=== PATIENT | female | born 1940 | race Caucasian/White ===

== ENCOUNTER 2020-01-07 09:44 | Inpatient (IN) | payer MEDICARE, OTHER ==
[~2020-01-07] VITALS: Ht 162.6 cm; Wt 72.1 kg
[~2020-01-07 09:44] MED LIST: CLARITIN D1 TAB.SR .; FLAX OIL PO; LYRICA 75MG75 MG; SUCRALFATE1 GM/10 ML PO; Z FISH OIL PO; Z MELATONIN PO; Z VITAMIN D PO; Z.0.BENICAR HCT 201 PO; Z.0.GLIMEPIRIDE2 MG PO; Z.0.GLUCOSAMINE1000; Z.0.MULTIVITAMINS1 E; Z.0.NAMENDA10 MG PO; Z.0.PRAVACHOL80 MG PO; Z.0.PREMARIN0.625 MG PO; Z.0.SUCRALFATE1 GM PO; Z.0.VICTOZA 2-0.6 MG SQ; Z.1.METFORMIN HCL100 PO
[2020-01-07] MEDS ORDERED: FENTANYL CITRATE/PF 100MCG/2 ML INJ IJ ONE (10:00)
--- NOTE | 2020-01-07 10:07 | Emergency Department Note ---
History of Present Illnes History of Present Illness Chief Complaint: Extremity Trauma/Pain History of Present Illness This is a 79 year old female Chief Complaint Comment PT CAME IN VIA [facility] FOR C/O LEFT KNEE/LEFT LEG PAIN, PT DENIES ANY TRAUMA, PT HAD AN MRI DONE AT HER PCP OFFICE AND STATES THAT NOTHING CONCLUSIVE WAS FOUND, NO DEFORMITY NOTED, NO SWELLING NOTED, PT WAS AMBULATORY ON SCENE. 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 Any updates have been documented here. Past Medical History Recent Fever: No Clinical Suspicion of Infectio: No New/Unexplained Change in Ment: No Past Medical History: Diabetes Other Medical History: NEUROPATHY, HIGH CHOLESTEROL, ACID REFLUX, ARTHRITIS Other Last Tetanus: UNKNOWBN Review of Systems Review of Systems Constitutional: Reports no symptoms EENTM: Reports no symptoms Cardiovascular: Reports no symptoms Respiratory: Reports no symptoms Gastrointestinal: Reports no symptoms Genitourinary: Reports no symptoms Musculoskeletal: Reports as per HPI, Reports joint pain (L hip) Integumentary: Reports no symptoms Neurological: Reports no symptoms Psychological: Reports no symptoms Endocrine: Reports no symptoms Hematological/Lymphatic: Reports no symptoms Physical Exam Related Data Allergies: Coded Allergies: Sulfa(Sulfonamide Antibiotics) (Verified Allergy, Mild, RASH, 04/21/09) Triage Vital Signs Vital Signs Date Time Temp Pulse Resp B/P (MAP) Pulse Ox O2 Delivery O2 Flow Rate FiO2 01/07/20 09:51 99.0 78 18 158/78 99 Room Air Vital signs reviewed: Yes Physical Exam CONSTITUTIONAL Constitutional: Present well-developed, Present well-nourished, Present distressed HENT HENT: Present normocephalic, Present atraumatic, Present oropharynx clear/moist, Present nose normal HENT L/R: Present left ext ear normal, Present right ext ear normal EYES Eyes: Reports PERRL, Reports conjunctivae normal NECK Neck: Present ROM normal PULMONARY Pulmonary: Present effort normal, Present breath sounds normal CARDIOVASCULAR Cardiovascular: Present regular rhythm, Present heart sounds normal, Present capillary refill normal, Present normal rate, Present strong pulses (BLE) GASTROINTESTINAL Abdominal: Present soft, Present nontender, Present bowel sounds normal GENITOURINARY Genitourinary: Present exam deferred SKIN Skin: Present warm, Present dry MUSCULOSKELETAL Musculoskeletal: Present ROM normal; Absent edema, Absent deformity, Absent tenderness NEUROLOGICAL Neurological: Present alert, Present oriented x 3, Present no gross motor or sensory deficits PSYCHOLOGICAL Psychological: Present mood/affect normal, Present judgement normal Results Laboratory Lab results reviewed: Yes Imaging Imaging results reviewed: Yes Assessment & Plan Medical Decision Making MDM 79 y.o F PMH D II presents for L leg pain x 1 week. Seen multiple times for this. Had neg MRI with Dr. Esparza. Exam benign. Pain appears to be out of proportion to exam. ROM full, able to ambulate. Will perform CT dissection. and admit to Dr. Esparza for pain control. CT dissection shows decreased flow at L popliteal artery but pulses 2+/equal. Unsure of significant. Doubt clinically significant arterial clot at this time. Reassessment Reassessment time: 10:07 Reassessment Pain improved after fentanyl Assessment & Plan Final Impression: (1) Intractable pain (2) Leg pain Depart Disposition: ADMITTED Last Vital Signs Date Time Temp Pulse Resp B/P (MAP) Pulse Ox O2 Delivery O2 Flow Rate FiO2 01/07/20 09:51 99.0 78 18 158/78 99 Room Air Home Meds Reported Medications Hydrocodone Bit/Acetaminophen (NORCO 5-325 TABLET) 1 Each Tablet, 1 TAB PO Q6H PRN for MODERATE PAIN (4-6), TAB 01/07/20 Oxybutynin Chloride (OXYBUTYNIN CHLORIDE ER) 5 Mg Tab.er.24, 5 MG PEG DAILY 01/07/20 Pioglitazone Hcl (PIOGLITAZONE HCL) 45 Mg Tablet, 30 MG PO DAILY, #30 TAB 01/07/20 Flaxseed Oil (Flax Oil) 1,000 Mg Capsule, 1000 MG PO DAILY 06/19/11 [place]-3/Dha/Epa/Fish Oil (Fish Oil 1,400 Mg Softgel) 1 Each Capsule.dr, 1 EACH PO QD 06/19/11 Multivitamin (MULTIVITAMINS) 1 Each Tab.chew, DAILY 06/19/11 Cholecalciferol (Vitamin D) 1,000 Unit Capsule, 1000 UNIT PO DAILY 06/19/11 Olmesartan/Hydrochlorothiazide (Benicar Hct 20-12.5 Mg Tablet) 1 Each Tablet, 1 EACH PO QD 06/19/11 Metformin Hcl (Metformin Hcl) 1,000 Mg Tablet, 500 MG PO DAILY 06/19/11 Discontinued Reported Medications Sucralfate (Sucralfate) 1 Gm Tablet, 1 GM PO QID 07/10/11 Loratadine/Pseudoephedrine (CLARITIN D 24 HR) 1 Tab.sr .24 H Tabsr, DAILY 06/19/11 Melatonin (Melatonin) 3 Mg Tablet, 3 MG PO HS 06/19/11 Glucosamine Sulfate 2KCL (GLUCOSAMINE) 1,000 Mg Tablet, BID 06/19/11 Liraglutide (Victoza 2-Daryn) 0.6 Mg/0.1 Ml Pen.injctr, 0.6 MG SQ DAILY 06/19/11 Estrogens,Conjugated (Premarin) 0.625 Mg Tablet, 0.625 MG PO QOD 06/19/11 Pravastatin Sodium (Pravachol) 80 Mg Tablet, 80 MG PO QD 06/19/11 Pregabalin (LYRICA 75MG) 75 Mg Cap, QD 06/19/11 Memantine Hcl (Namenda) 10 Mg Tablet, 10 MG PO BID 06/19/11 Glimepiride (Glimepiride) 2 Mg Tablet, 2 MG PO BID 06/19/11 Medications in the ED Fentanyl Citrate 50 mcg ONCE ONCE IJ ; Start 01/07/20 at 10:00; Stop 01/07/20 at 10:01; Status UNV LAURA POTTER MD Jan 07, 2020 10:07
[2020-01-07 10:26] LABS: BASOPHILS % 0.3 % (0.0-1.0); EOSINOPHILS # (AUTO) 0.1 (0.0-0.4); EOSINOPHILS % 1.5 % (0.0-6.0); HEMATOCRIT 40.2 % (34.2-44.1); HEMOGLOBIN 13.2 g/dL (12.0-16.0); LYMPHOCYTES # (AUTO) 1.3 (1.0-3.2); LYMPHOCYTES % 22.3 % (18.0-39.1); MEAN CORPUSCULAR HEMOGLOBIN 31.7 pg (28-32); MEAN CORPUSCULAR HGB CONC 32.8 g/dL (31-35); MEAN CORPUSCULAR VOLUME 96.6 fL (81-99); MONOCYTES # (AUTO) 0.7 (0.2-0.8); MONOCYTES % 11.5 % (4.4-11.3); NEUTROPHILS # (AUTO) 3.9 (2.1-6.9); NEUTROPHILS % 64.2 % (38.7-80.0); PLATELET COUNT 184 x10e3/uL (140-360); RED BLOOD COUNT 4.16 x10e6/uL (3.6-5.1); RED CELL DISTRIBUTION WIDTH 13.7 % (11.7-14.4)
[2020-01-07] MEDS ORDERED: SODIUM CHLORIDE 0.9% 1000ML 1,000 ML IV SCH (10:30)
[2020-01-07 10:47] LABS: ALBUMIN 4.4 g/dL (3.5-5.0); ALBUMIN/GLOBULIN RATIO 1.4 (0.8-2.0); ANION GAP 17.1 mmol/L (8-16); CREATININE, SERUM 1.17 mg/dL (0.57-1.11); POTASSIUM 4.1 mmol/L (3.5-5.1)
[2020-01-07] MEDS ORDERED: SODIUM CHLORIDE 0.9% 500ML 500 ML IV STA (10:59)
--- OUTSIDE RECORDS SUMMARY | 2020-01-07 11:04 | XMS REPORT | Continuity of Care Document ---
Author Author [facility] t Organization [facility] Address [address] [place] [address] Phone Unavailable Care Team Providers Care Piling Setter Name Role Phone Sharpless PCP SANFORD ARAIZA Attphyhieu Unavailable Problems This patient has no known problems. Allergies, Adverse Reactions, Alerts Allergy Name Allergy Type Status Severity Reaction(s) Onset Date Inacti ve Date Treating Clinician Comments Source Sulfa (Sulfonamide Antibiotics) Propensity to adverse reactions Activ e Rash 2016-01-06 00:00:00 [facility] Social History Social Habit Start Date Stop Date Quantity Comments Source Sex Assigned At [facility] Medications Ordered Medication Name Filled Medication Name Start Date Stop Da te Current Medication? Ordering Clinician Indication Dosage Frequency Signature (SIG) Comments Components Source glimepiride (AMARYL) 4 MG tablet 2016-01-06 18:12:17 Yes 4mg Take 4 mg by mouth every morning before breakfast. [facility] acetaminophen-codeine (TYLENOL #3) 300-30 mg per tablet 2016-01-02 00:00:00 Yes [facility] traZODone (DESYREL) 100 MG tablet 2015-12-30 00:00:00 Yes [facility] BENICAR HCT 20-12.5 mg per tablet 2015-12-24 00:00:00 Yes [facility] metFORMIN (GLUCOPHAGE) 500 MG tablet 2015-12-17 00:00:00 Yes [facility] VICTOZA 3-FCO 0.6 mg/0.1 mL (18 mg/3 mL) PnIj 2015-12-16 00:00:0 0 Yes [facility] fluticasone (FLONASE) 50 mcg/actuation nasal spray 2015-11 00:00:00 Yes [facility] LYRICA 75 mg capsule 2015-11-26 00:00:00 Yes [facility] Procedures This patient has no known procedures. Results Test Description Test Time Test Comments Results Result Comments Source MRI BRAIN WO [facility] [address] [address] Patient Name: YUKO GARCIA MR #: [id number] : 1940 Age/Sex: 76/F Req #: [id number] Adm Physician: Ordered by: SANFORD ARAIZA MD Report #: [id number] Location: MRI Room/Bed: Procedure: [id number] MRI/MRI BRAIN WO Exam Date: 01/22/17 Exam Time: 1400 REPORT STATUS: Signed EXAMINATION: MRI of the brain without contrast. HISTORY: Memory loss COMPARISON: None. TECHNIQUE: Sagittal T1 ultrathin slice with coronal and axial reformations; axial DWI, T2, FLAIR, T2 gradient echo. IMAGE QUALITY: Adequate. FINDINGS: DEMENTIA: Structural lesion: No intra- or extra-axial mass or hematoma. Ventricles: No hydrocephalus. Murphy matter signal intensity: Cortex: Unremarkable. Basal ganglia: Unremarkable. Thalami: Unremarkable. White matter signal intensity: Cerebral: Few scattered white matter T2 and FLAIR hyperintense foci, most likely nonspecific symmetric posterior ischemic changes. Brainstem: Unremarkable. Mamillary bodies/fornices and hippocampi: No atrophy or abnormal signal. Microhemorrhages: None. Atrophy: Global: Symmetric and age-appropriate. Focal: Slightly disproportionate bilateral parietal cortical and right medial temporal/hippocampal volume loss. Otherwise no disproportionate lobar, mesencephalic, pontine, or cerebellar atrophy. Vessels: Expected flow voids present in the major arteries and dural sinuses. Sella: Unremarkable. OTHER: Subarachnoid spaces: No abnormal signal intensity. Foramen magnum: Unremarkable. Skull: Unremarkable. Paranasal / mastoid sinuses: No significant inflammatory disease. IMPRESSION: 1. Minimal age-related chronic microvascular ischemic changes. 2. Mild bilateral parietal and right medial temporal/hippocampal volume loss. Signed by: Dr. Mayte De La Fuente M.D. on 01/23/2017 7:25 AM Dictated By: MAYTE DE LA FUENTE MD 4 Transcribed By: HYACINTH on 01/23/17724 COPY TO: SANFORD ARAIZA MD
--- OUTSIDE RECORDS SUMMARY | 2020-01-07 11:04 | XMS REPORT | Clinical Summary ---
Author Author JOSE MANUEL [facility] Address Unknown Phone Unavailable Care Team Providers Care Stone Lathe Operator Name Role Phone Sharpless PCP Allergies Comments Active Allergy Reactions Severity Noted Date Sulfa (Sulfonamide Rash Low 01/06/2016 Antibiotics) Medications End Date Status Medication Sig Dispensed Refills Start Date Active VICTOZA 3-FCO 0.6 mg/0.1 0 mL (18 mg/3 mL) PnIj 6 Active metFORMIN (GLUCOPHAGE) 0 500 MG tablet 6 Active BENICAR HCT 20-12.5 mg 0 per tablet 6 Active LYRICA 75 mg capsule 0 6 Active traZODone (DESYREL) 100 0 MG tablet 6 Active acetaminophen-codeine 0 (TYLENOL #3) 300-30 mg 6 per tablet Active fluticasone (FLONASE) 50 0 mcg/actuation nasal spray 6 Active glimepiride (AMARYL) 4 MG Take 4 mg by 0 tablet mouth every morning before breakfast. Active Problems Not on file Social History Date Tobacco Use Types Packs/Day Years Used Never Assessed Sex Assigned at Date Recorded Not on file Last Filed Vital Signs Not on file Plan of Treatment Not on file Results Not on fileafter 01/06/2019 Insurance Type Payer Benefit Subscriber ID Effective Phone Address Plan / Dates Group [facility] [id number] 2015-P MEDICARE resent ADV
[2020-01-07] MEDS ORDERED: PIOGLITAZONE HC45 MG PO (11:41)
[2020-01-07] MEDS ORDERED: OXYBUTYNIN CHLOR5 M1 PEG (11:41)
[2020-01-07] MEDS ORDERED: NORCO 5-325 TA1 EACH PO (11:41)
--- NOTE | 2020-01-07 12:01 | Diagnostic Imaging Report ---
EXAM: FEMUR 2 VIEWS MINIMUM LEFT, KNEE LEFT THREE VIEWS, HIP LEFT 2-3 VW (+/- PELVIS) DATE: 01/07/2020 11:20 AM INDICATION: Left lower extremity pain COMPARISON: None FINDINGS: Pelvis and left hip: There is no evidence for acute fracture or dislocation. No focal lytic or blastic abnormality is identified. There are advanced degenerative changes of the left hip with severe joint space narrowing, subchondral sclerosis, and osteophyte production. The surrounding soft tissues are unremarkable without evidence for radiopaque foreign body. Left femur: There is no evidence for acute fracture or dislocation. No focal lytic or blastic abnormality is identified. The surrounding soft tissues are unremarkable without evidence for radiopaque foreign body. Left knee: There is no evidence for acute fracture or dislocation. No focal lytic or blastic abnormality is identified. There is mild to moderate femorotibial joint space narrowing, more prominent within the medial compartment. Mild spurring noted of the tibial spine. The surrounding soft tissues are unremarkable without evidence for radiopaque foreign body or significant joint effusion. IMPRESSION: No acute radiographic abnormality identified within the left hip, femur, or knee. Advanced degenerative changes of the left hip as detailed above. Signed by: Dr. Gómez Sims MD on 01/07/2020 11:58 AM
[2020-01-07] MEDS ORDERED: IOPAMIDOL 370 MG/ML 200 ML INFUS..BTL INJ ONE (12:40)
[2020-01-07] MEDS ORDERED: SODIUM CHLORIDE 0.9% 100 ML ONE (12:40)
[2020-01-07] MEDS: FENTANYL CITRATE/PF 100MCG/2 ML INJ IV PRN ×2 (13:08→17:15)
[2020-01-07] MEDS ORDERED: MORPHINE SULFATE 2 MG/ML SYR 1ML IV PRN (14:45)
--- OUTSIDE RECORDS SUMMARY | 2020-01-07 14:50 | XMS REPORT | Continuity of Care Document ---
Author Author [facility] t Organization [facility] Address [address] [place] [address] Phone Unavailable Care Team Providers Care Gas Examiner Name Role Phone Sharpliliana PCP Angela Jane Attphys Unavailable SANFORD ARAIZA Attphyhieu Unavailable Problems This patient has no known problems. Allergies, Adverse Reactions, Alerts Allergy Name Allergy Type Status Severity Reaction(s) Onset Date Inacti ve Date Treating Clinician Comments Source Sulfa (Sulfonamide Antibiotics) Propensity to adverse reactions Activ e Rash 2016-01-06 00:00:00 [facility] Social History Social Habit Start Date Stop Date Quantity Comments Source Sex Assigned At [facility] Medications Ordered Medication Name Filled Medication Name Start Date Stop Da te Current Medication? Ordering Clinician Indication Dosage Frequency Signature (SIG) Comments Components Source glimepiride (AMARYL) 4 MG tablet 2016-01-06 18:12:17 Yes 4mg Take 4 mg by mouth every morning before breakfast. [facility] acetaminophen-codeine (TYLENOL #3) 300-30 mg per tablet 2016-01-02 00:00:00 Yes [facility] traZODone (DESYREL) 100 MG tablet 2015-12-30 00:00:00 Yes [facility] BENICAR HCT 20-12.5 mg per tablet 2015-12-24 00:00:00 Yes [facility] metFORMIN (GLUCOPHAGE) 500 MG tablet 2015-12-17 00:00:00 Yes [facility] VICTOZA 3-FCO 0.6 mg/0.1 mL (18 mg/3 mL) PnIj 2015-12-16 00:00:0 0 Yes [facility] fluticasone (FLONASE) 50 mcg/actuation nasal spray 2015-11 00:00:[address] [facility] LYRICA 75 mg capsule 2015-11-26 00:00:00 Yes [facility] Procedures This patient has no known procedures. Results Test Description Test Time Test Comments Results Result Comments Source HIP LEFT 2-3 VW (+/- PELVIS) 2020-01-07 11:53:00 [facility] 1940 Sex: [place] [address] [place] [address] Patient Name: YUKO GARCIA MR #: [id number] : 1940 Age/Sex: 79/F Req #: [id number] Adm Physician: Ordered by: Laura Jane MD Report #: [id number] Location: Room/Bed: Procedure: [id number] DX/HIP LEFT 2-3 VW (+/- PELVIS) Exam Date: Exam Time: REPORT STATUS: Signed EXAM: FEMUR 2 VIEWS MINIMUM LEFT, KNEE LEFT THREE VIEWS, HIP LEFT 2-3 VW (+/- PELVIS) DATE: 01/07/2020 11:20 AM INDICATION: Left lower extremity pain COMPARISON: None FINDINGS: Pelvis and left hip: There is no evidence for acute fracture or dislocation. No focal lytic or blastic abnormality is identified. There are advanced degenerative changes of the left hip with severe joint space narrowing, subchondral sclerosis, and osteophyte production. The surrounding soft tissues are unremarkable without evidence for radiopaque foreign body. Left femur: There is no evidence for acute fracture or dislocation. No focal lytic or blastic abnormality is identified. The surrounding soft tissues are unremarkable without evidence for radiopaque foreign body. Left knee: There is no evidence for acute fracture or dislocation. No focal lytic or blastic abnormality is identified. There is mild to moderate femorotibial joint space narrowing, more prominent within the medial compartment. Mild spurring noted of the tibial spine. The surrounding soft tissues are unremarkable without evidence for radiopaque foreign body or significant joint effusion. IMPRESSION: No acute radiographic abnormality identified within the left hip, femur, or knee. Advanced degenerative changes of the left hip as detailed above. Signed by: Dr. Gómez Sims MD on 01/07/2020 11:58 AM Dictated By: GÓMEZ SIMS MD 1158 Transcribed By: HYACINTH on 01/07/20 1158 COPY TO: LAURA JANE MD KNEE LEFT THREE VIEWS 2020-01-07 11:53:00 [facility] 1940 Sex: [place] [address] [place] [address] Patient Name: YUKO GARCIA MR #: [id number] : 1940 Age/Sex: 79/F Req #: [id number] [facility] Physician: Ordered by: Laura Jane MD Report #: [id number] Location: ER Room/Bed: Procedure: [id number] DX/KNEE LEFT THREE VIEWS Exam Date: Exam Time: REPORT STATUS: Signed EXAM: FEMUR 2 VIEWS MINIMUM LEFT, KNEE LEFT THREE VIEWS, HIP LEFT 2-3 VW (+/- PELVIS) DATE: 01/07/2020 11:20 AM INDICATION: Left lower extremity pain COMPARISON: None FINDINGS: Pelvis and left hip: There is no evidence for acute fracture or dislocation. No focal lytic or blastic abnormality is identified. There are advanced degenerative changes of the left hip with severe joint space narrowing, subchondral sclerosis, and osteophyte production. The surrounding soft tissues are unremarkable without evidence for radiopaque foreign body. Left femur: There is no evidence for acute fracture or dislocation. No focal lytic or blastic abnormality is identified. The surrounding soft tissues are unremarkable without evidence for radiopaque foreign body. Left knee: There is no evidence for acute fracture or dislocation. No focal lytic or blastic abnormality is identified. There is mild to moderate femorotibial joint space narrowing, more prominent within the medial compartment. Mild spurring noted of the tibial spine. The surrounding soft tissues are unremarkable without evidence for radiopaque foreign body or significant joint effusion. IMPRESSION: No acute radiographic abnormality identified within the left hip, femur, or knee. Advanced degenerative changes of the left hip as detailed above. Signed by: Dr. Gómez Sims MD on 01/07/2020 11:58 AM Dictated By: GÓMEZ SIMS MD [id number] Transcribed By: HYACINTH on 01/07/20 6004 COPY TO: LAURA JANE MD FEMUR 2 VIEWS MINIMUM LEFT 2020-01-07 11:53:00 [facility] : 1940 Sex: [place] [address] [address] Patient Name: YUKO GARCIA MR #: [id number] : 1940 Age/Sex: 79/F Req #: [id number] [facility] Physician: Ordered by: Laura Jane MD Report #: [id number] Location: ER Room/Bed: Procedure: [id number] DX/FEMUR 2 VIEWS MINIMUM LEFT Exam Date: Exam Time: REPORT STATUS: Signed EXAM: FEMUR 2 VIEWS MINIMUM LEFT, KNEE LEFT THREE VIEWS, HIP LEFT 2-3 VW (+/- PELVIS) DATE: 01/07/2020 11:20 AM INDICATION: Left lower extremity pain COMPARISON: None FINDINGS: Pelvis and left hip: There is no evidence for acute fracture or dislocation. No focal lytic or blastic abnormality is identified. There are advanced degenerative changes of the left hip with severe joint space narrowing, subchondral sclerosis, and osteophyte production. The surrounding soft tissues are unremarkable without evidence for radiopaque foreign body. Left femur: There is no evidence for acute fracture or dislocation. No focal lytic or blastic abnormality is identified. The surrounding soft tissues are unremarkable without evidence for radiopaque foreign body. Left knee: There is no evidence for acute fracture or dislocation. No focal lytic or blastic abnormality is identified. There is mild to moderate femorotibial joint space narrowing, more prominent within the medial compartment. Mild spurring noted of the tibial spine. The surrounding soft tissues are unremarkable without evidence for radiopaque foreign body or significant joint effusion. IMPRESSION: No acute radiographic abnormality identified within the left hip, femur, or knee. Advanced degenerative changes of the left hip as detailed above. Signed by: Dr. Gómez Sims MD on 01/07/2020 11:58 AM Dictated By: GÓMEZ SIMS MD 1158 Transcribed By: HYACINTH on 01/07/20 1158 COPY TO: LAURA JANE MD MRI BRAIN WO [address] [address] Patient Name: YUKO GARCIA MR #: [id number] : 1940 Age/Sex: 76/F Req #: [id number] Adm Physician: Ordered by: SANFORD ARAIZA MD Report #: [id number] Location: MRI Room/Bed: Procedure: [id number] MRI/MRI BRAIN WO Exam Date: 01/22/17 Exam [...]
--- OUTSIDE RECORDS SUMMARY | 2020-01-07 14:50 | XMS REPORT | Clinical Summary ---
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
--- NOTE | 2020-01-07 14:58 | Diagnostic Imaging Report ---
CTA abdomen/pelvis with bilateral lower turnaround off History: Left lower extremity pain. Comparison: None available. Technique: Multidetector CT scanning of the abdomen and pelvis was performed without the use of contrast material. Subsequently, axial images of the abdomen/pelvis and bilateral lower extremities were obtained after the administration of intravenous contrast material according to the CTA protocol. Coronal and sagittal, and three-dimensional reformations were obtained. RADIATION DOSE: Total DLP: 1193.28 mGy*cm Dose modulation, iterative reconstruction, and/or weight based adjustment of the mA/kV was utilized to reduce the radiation dose to as low as reasonably achievable. FINDINGS: Vascular: Please note that this examination was not tailored for detailed evaluation of pulmonary arteries. There is a partially visualized filling defect identified within the right lower lobar pulmonary artery on the first few images of the contrast enhanced portion of the examination. The abdominal aorta is normal in course and caliber with minimal atherosclerotic calcifications. There is no evidence for dissection, intramural hematoma, contained rupture, or other acute pathology. Maximal AP diameter is of the abdominal aorta are 2.1 cm at the level of diaphragmatic hiatus, 2.1 cm within the superior mesenteric segment 1.8 cm at the level of the renal arteries, and 1.3 cm proximal to the bifurcation. The bilateral common iliac arteries are normal in course and caliber with mild lateral sclerotic calcifications. Right lower extremity: The right external and internal iliac arteries are patent without significant focal stenosis. The common femoral artery, superficial femoral artery, and profunda femoris are patent without significant focal stenosis. The popliteal artery is patent without significant focal stenosis. The anterior tibial artery, posterior tibial artery, and peroneal arteries are patent the level of the distal calf/ankle. Left lower extremity: The left external and internal iliac arteries are patent without significant focal stenosis. The left common femoral, superficial femoral, and profunda femoris are patent without significant focal stenosis. Mild atherosclerotic plaquing noted along the course of the external iliac artery and common femoral artery. The proximal popliteal artery is patent. There is decreased opacification of the left mid and distal popliteal artery in comparison to the contralateral side. Questionable central filling defect noted within the mid left popliteal artery (axial image 328). There is only minimal contrast opacification of the proximal tibioperoneal trunk and anterior tibial artery. The more distal portions of the calf arteries are not opacified for evaluation likely secondary to poor inflow. NONVASCULAR: The visualized lungs demonstrate no significant abnormalities. The imaged portion of the heart is unremarkable. The liver is normal in size and attenuation. The gallbladder is unremarkable. There is no biliary ductal dilatation. The stomach, spleen, and bilateral adrenal glands are unremarkable. There is mild prominence of the pancreatic duct measuring up to 6 mm. No focal pancreatic lesion is appreciated. The kidneys are normal in size and location and enhance symmetrically. There is no evidence for nephrolithiasis or hydronephrosis. No ureteral stone or dilatation is appreciated. There is moderate distention of the urinary bladder which is otherwise unremarkable. The uterus is surgically absent. No abnormal adnexal masses are identified. Please note that evaluation of bowel is limited without the use of enteric contrast material. The visualized loops of small and large bowel demonstrate no evidence of obstruction or inflammation. There is no ascites or intraperineal free air. No abnormally enlarged lymph node identified in the abdomen or pelvis. The osseous structures demonstrate no evidence for acute fracture or destructive process. The extraperitoneal soft tissues are unremarkable. IMPRESSION: Partially visualized filling defect identified within the right lower lobar pulmonary artery concerning for pulmonary thromboembolus. Unremarkable CTA of the abdominal aorta without evidence for dissection, aneurysm, or other acute aortic pathology. Unremarkable CTA of the right lower extremity with 3 vessel runoff. There is decreased opacification of the left lower extremity beginning at the mid popliteal artery with only opacification of the proximal anterior tibial artery and proximal tibioperoneal trunk. Findings are concerning for focal stenosis, noncalcified plaque, or thrombus at the level of the mid left popliteal artery. Consider vascular surgery consultation and/or further evaluation with conventional angiography. Findings discussed with Dr. Jane at 245 pm on 01/07/20. Signed by: Dr. Gómez Sims MD on 01/07/2020 2:54 PM
[2020-01-07] MEDS: ENOXAPARIN SODIUM INJ 100 MG/ML SYR SC SCH (15:20)
[2020-01-07] MEDS: SODIUM CHLORIDE 0.9% 1000ML 1,000 ML IV SCH ×2 (15:20→23:29)
--- NOTE | 2020-01-07 15:53 | NUR ---
RCD PT FROM ER BY BED PT IS ALERT AND ORIENTED PT RESTING ON BED VITALS CHECKED ,IV PATENT AND RUNNING NS 125 ,PT C/O PAIN ON LEFT LEG 11/26,ADMISSION ASSESSMENT AND HISTORY DONE INSTRUCTED THE PT ABOUT HOSPITAL POLICY AND ROUTINE BED LOW AND LOCKED CALL LIGHT IN REACH
[2020-01-07 16:15] VITALS: BP 139/75
[2020-01-07 16:28] VITALS: BP 139/75
[2020-01-07 16:33] VITALS: BP 139/79
--- NOTE | 2020-01-07 18:20 | NUR ---
PT C/O SEVERE PAIN ON LEFT LEG PAGED AND NOTIFIED DR LOUIE GOT NEW ORDERS
[2020-01-07] MEDS: KETOROLAC TROMETHAMINE 30 MG/ML VIAL IV PRN (18:38)
--- NOTE | 2020-01-07 18:45 | NUR ---
PT RESTING ON BED BED SIDE REPOT GIVEN TO ONCOMING NURSE
--- NOTE | 2020-01-07 19:05 | NUR ---
PT RESTING ON BED BED SIDE REPOT GIVEN TO ONCOMING NURSE
--- NOTE | 2020-01-07 19:27 | NUR ---
Patient received lying in bed. AAO x 3. Patient had no complaints of pain. Respirations even and non-labored. IVF infusing at 125 cc/hr. Safety measures in place. Patient instructed to ask for assistance when needed. Call light within reach.
[2020-01-07 20:00] VITALS: BP 135/111
--- NOTE | 2020-01-07 21:40 | Consultation ---
DATE OF CONSULTATION: Pulmonary Consultation REASON FOR CONSULT: Incidental finding of PE. HISTORY OF PRESENT ILLNESS: Ms. Dong is a 79-year-old female. She presented to the emergency room with complaints. She was seen by Dr. Esparza on Friday, which is yesterday with the pain in the leg and she underwent scanning of the leg with knee and hip x-ray, and had aorta with runoffs CTA and filling defect was seen in the right lobar pulmonary artery. Unremarkable CTA of the abdominal aorta without evidence for dissection. Unremarkable CTA of the right lower extremity with three-vessel runoff. She reported that she had COVID-19 two months ago. She is denying any complaints of chest pain, nausea, or vomiting. She has a history of diabetes. PAST MEDICAL HISTORY: Diabetes. FAMILY AND SOCIAL HISTORY: She does not smoke. Does not drink. PHYSICAL EXAMINATION: VITAL SIGNS: Temperature 98.4, pulse of 87, and blood pressure 139/75. CHEST: Clear to auscultation bilaterally. HEART: S1 and S2 audible. ABDOMEN: Soft. EXTREMITIES: No pedal edema, however, there are some discolored spots on the left leg. LABORATORY DATA: White count of 6000 and hemoglobin 13.2. INR is 10.2. Chemistry reviewed. Creatinine is 1.17. The patient received Lovenox one dose in the emergency room. CT abdomen and pelvis shows decreased opacification of the left lower extremity beginning at the mid popliteal artery. ASSESSMENT/PLAN: Ms. Dong is a 79-year-old female with incidental finding of PE. She reported 2 months ago she was diagnosed with COVID-19 infection, possibly the reason for being hypercoagulable, as there is no apparent risk factor. She has no recent travel, trauma, or does not take any specific medication that can make her hypercoagulable. She also has stenosis, possibly blockage of the popliteal artery. PLAN: Agree with the Lovenox for now. The patient will need a CTA of the chest. However, we will hold off on it, as the patient's creatinine is 1.17, and at this point, we will not change the management, as she is not hypoxic, hypotensive, or hemodynamically unstable. MD KAROLINA Eason/LEILA /[id number]
[2020-01-07] MEDS: MORPHINE SULFATE INJ 4 MG/ML INJ 1ML IV PRN (22:20)
[2020-01-07] MEDS: ONDANSETRON HCL INJ 2MG/ML 2ML 2 MG/ML VIAL IV PRN (22:20)
[2020-01-08] VITALS (8 sets, daily range): BP systolic 125–141; BP diastolic 59–76
[2020-01-08] MEDS: KETOROLAC TROMETHAMINE 30 MG/ML VIAL IV PRN ×2 (01:22→21:55)
[2020-01-08] MEDS: SODIUM CHLORIDE 0.9% 1000ML 1,000 ML IV SCH ×4 (04:15→22:45)
[2020-01-08 06:01] LABS: BASOPHILS % 0.4 % (0.0-1.0); EOSINOPHILS # (AUTO) 0.1 (0.0-0.4); EOSINOPHILS % 1.8 % (0.0-6.0); HEMATOCRIT 35.3 % (34.2-44.1); HEMOGLOBIN 11.5 g/dL (12.0-16.0); LYMPHOCYTES # (AUTO) 1.4 (1.0-3.2); MEAN CORPUSCULAR HEMOGLOBIN 31.8 pg (28-32); MEAN CORPUSCULAR HGB CONC 32.6 g/dL (31-35); MEAN CORPUSCULAR VOLUME 97.5 fL (81-99); MONOCYTES # (AUTO) 0.7 (0.2-0.8); MONOCYTES % 13.2 % (4.4-11.3); NEUTROPHILS # (AUTO) 2.9 (2.1-6.9); NEUTROPHILS % 57.4 % (38.7-80.0); PLATELET COUNT 144 x10e3/uL (140-360); RED BLOOD COUNT 3.62 x10e6/uL (3.6-5.1); RED CELL DISTRIBUTION WIDTH 13.6 % (11.7-14.4)
[2020-01-08 06:21] LABS: ANION GAP 11.4 mmol/L (8-16); CREATININE, SERUM 1.07 mg/dL (0.57-1.11); POTASSIUM 4.4 mmol/L (3.5-5.1)
--- NOTE | 2020-01-08 07:00 | NUR ---
Dr. Cortes (covering for Dr. Frnaco) notified of "Routine Consult". Reason: Popliteal Artery Stenosis ; Clot.
--- NOTE | 2020-01-08 07:03 | NUR ---
Patient resting comfortably. Walking rounds done. Bed-side shift report given to oncoming nurse regarding patient's status.
--- NOTE | 2020-01-08 07:10 | NUR ---
RCD PT AT BED PT IS ALERT AND ORIENTED IV PATENT BED LOW AND LOCKED CALL LIGHT IN REACH
[2020-01-08] MEDS: INSULIN LISPRO 100 UNIT/1 ML 3ML VIAL SQ SCH ×4 (07:30→20:33)
[2020-01-08] MEDS: MORPHINE SULFATE INJ 4 MG/ML INJ 1ML IV PRN ×3 (07:35→21:30)
--- NOTE | 2020-01-08 07:36 | History and Physical ---
CHIEF COMPLAINT: The patient is a 79-year-old female who came in with left pain which is intractable and also bruising. HISTORY OF PRESENT ILLNESS: Ms. Shweta Baumann who is a 79-year-old female who recently lost her and also has had coronavirus about a month ago, was in usual state of health until the patient started with intractable pain more on ambulation and also patient developed some bruising in the thigh area. Pain is described as from the abdominal area all the way to the knee joint. The patient has had MRIs of the lumbar spine for radicular symptoms and this was negative, but however the patient continued to have pain, was sent to the ER for pain control and was found to have possible ischemic limb and on evaluation also was found to have a possible PE and is currently on anticoagulation with Lovenox and Cardiology consult has been done. PAST MEDICAL HISTORY: History of diabetes mellitus, history of hypertension, history of hyperlipidemia, and history of recent coronavirus. SOCIAL HISTORY: No EtOH. No IV drug abuse. No history of smoking. History of losing about 2 weeks ago. ALLERGIES: ALLERGIC TO SULFA. MEDICATIONS: She takes at home include vitamin D, flaxseed oil, hydrocodone which was recently prescribed, metformin 1000 mg twice a day, olmesartan-hydrochlorothiazide 20/12.5, omega-3, oxybutynin 5 mg a day, and pioglitazone 45 mg a day. PAST SURGICAL HISTORY: History of hysterectomy. Otherwise, negative. REVIEW OF SYSTEMS: Negative for chest pain. No shortness of breath. No nausea. No vomiting. No diarrhea. No constipation. No rectal bleeding. No hematochezia. No hematemesis. Positive for tenderness and pain in the left lower extremity and pain on ambulation about even 2-3 steps. PHYSICAL EXAMINATION: VITAL SIGNS: Temperature is 98.4, pulse of 87, respirations of 18, pulse oximetry of 100% on arrival. HEENT: Normocephalic, atraumatic. Pupils reactive. CVS: S1 and S2 normal. Regular rhythm. ABDOMEN: Soft, nontender. LUNGS: Good air entry. EXTREMITIES: Left lower extremity with tenderness extending from the hip and thigh on palpation. Positive for ecchymosis on the left lower extremity. Pedal pulses are felt. IMAGING STUDIES: Aorta runoff shows partial visualized filling defect in the right lower lobar pulmonary artery concerning for pulmonary thromboembolism. Focal stenosis of the mid popliteal artery also. This has been reported. LABORATORY DATA: Other laboratory values, white count has been normal at 6, hemoglobin of 13.2, and hematocrit of 40.2. Chemistry shows sodium of 137 with potassium of 4.2, BUN of 26, creatinine of 1.7, EGFR of 45, and glucose is 160. ASSESSMENT AND PLAN: Ms. Shweta Dong with, 1. Acute ischemia of the lower extremity artery. 2. Intractable pain. 3. Diabetes mellitus. 4. Hypertension. 5. History of coronavirus with history of pulmonary embolism and possible acute venous or arterial thrombus. PLAN: Continue with Lovenox, which has been started. The patient is to consult with Dr. Nikhil Franco for possible intervention. We will continue to monitor the patient. Further recommendation per clinical course. We will continue with anticoagulation at this time. MD CARLOS Charlton/MODL /[id number]
--- NOTE | 2020-01-08 07:55 | NUR ---
Discussed pt status with Dr. Esparza. He stated that the pt will require intervention, and gave Inpatient order.
[2020-01-08] MEDS: LOSARTAN POTASSIUM 25 MG TAB PO SCH (09:00)
[2020-01-08] MEDS: ENOXAPARIN SODIUM INJ 100 MG/ML SYR SC SCH (09:00)
--- NOTE | 2020-01-08 11:22 | NUR ---
Discussed IMM letter with pt, original given to pt, copy signed by pt and is placed in the chart.
--- NOTE | 2020-01-08 16:44 | Diagnostic Imaging Report ---
Perfusion Lung Scan NOTE: Lung ventilation studies with xenon are not being performed per the recommendation of the Society of Nuclear [employer] and [employer]. It is not possible to be certain that the ventilation system is adequately disinfected. Ventilation studies with Tc-99m DTPA particles is contraindicated because the delivery by nebulization generates too many water droplets from the patient's airway. Reason for exam: 79 F with left leg pain, swelling and redness x [address] abdo/pelvis with bilateral lower extremity run-off. Clinical information: Abdominopelvic CT with lower extremity runoff shows partially visualized filling defect in the the right lower lobar pulmonary artery on the first few images of the contrast enhanced portion of the exam. No clot in the lower extremities to the knees was seen on the exam. The left popliteal artery failed to opacify. The right lower leg shows no evidence of obstruction of arterial flow. Comparison: CT abdo/pelvis with contrast with bilateral lower extremity run-off 01/07/2020 Discussion: Ventilation images were not obtained. See note above. Perfusion images of the lungs were obtained in multiple projections following intravenous administration of approximately 6 mCi of Tc-99m MAA. DIstribution of tracer activity is irregular throughout the bilateral lungs. Large segmental perfusion abnormality in the superior segment of the RLL. No perfusion abnormalities in the basal segments of the RLL. No segmental perfusion defects in the RUL, RML or left lung. The cardiomediastinal silhouette is unremarkable. Impression: 1. Scan findings represent an INTERMEDIATE probability for acute pulmonary embolic disease based on the perfusion-only modified PIOPED II criteria. This probability is assigned based on a single moderate to large segmental perfusion defect in the superior segment of the RLL. Chest radiograph or CT chest would be useful to evaluate for RLL pathology. 2. Scan findings are compatible with diffuse parenchymal and/or obstructive lung disease. Signed by: Dr. Michelle Velazquez M.D. on 01/08/2020 4:40 PM
--- NOTE | 2020-01-08 18:54 | NUR ---
PT RESTING ON BED BED SIDE REPOT GIVEN TO ONCOMING NURSE
--- NOTE | 2020-01-08 20:14 | Consultation ---
DATE OF CONSULTATION: 01/08/2020 Cardiology Consultation REQUESTING PHYSICIAN: Dr. Binh Esparza. REASON FOR CONSULTATION: Peripheral arterial disease. HISTORY OF PRESENT ILLNESS: This is a 79-year-old woman with history of diabetes mellitus and recent COVID-19 pneumonia who presented with complaints of leg pain. The patient reports she developed pain in her left hip radiating down her leg last Friday. She was seen in an outside facility and told her pain was secondary to sciatica and discharged home. However, due to continued pain as well as developing of bruising in the left thigh she was seen in the ER Friday with this pain and was told she had sciatica. She saw her PCP who ordered an MRI which was reportedly unrevealing. Due to continued pain she presented to the ER for further evaluation. CT of the abdomen and pelvis with lower extremity runoff was performed which was suspicious for pulmonary thromboembolism. However, there was apparently decreased opacification of the left lower extremity at the mid popliteal artery with only opacification of the proximal anterior tibial artery and proximal tibioperoneal trunk. This was concerning for focal stenosis, plaque or thrombus. She was therefore admitted for further care. Cardiology is therefore consulted for recommendations. The patient denies any chest pain, shortness of breath, edema or orthopnea. She does report occasional palpitations. REVIEW OF SYSTEMS: Negative except as per HPI. PAST MEDICAL HISTORY: 1. Diabetes mellitus. 2. Recent COVID-19 pneumonia. 3. Hypertension. 4. Hyperlipidemia. PAST SURGICAL HISTORY: Hysterectomy. ALLERGIES: PLEASE SEE EMR. MEDICATIONS: Please see medication list. SOCIAL HISTORY: She reports a remote history of tobacco use. No alcohol or illicit drugs. FAMILY HISTORY: Pertinent for mother with heart disease, although details are unknown. PHYSICAL EXAMINATION: VITAL SIGNS: Temperature 97.7 degrees, pulse 88, respiratory rate 16, blood pressure 141/76, oxygen 96% on room air. GENERAL: Elderly woman, in no acute distress. Well developed, well nourished. HEENT: Normocephalic, atraumatic. Pupils equal. No scleral icterus. NECK: Supple. No thyroid or cervical lymphadenopathy. No carotid bruits. LUNGS: Clear to auscultation bilaterally. No wheezes or crackles. CARDIOVASCULAR: Normal rate. Regular rhythm. No murmur. Normal S1, S2. ABDOMEN: Soft, nontender. NEURO: Cranial nerves 2-12 grossly intact. EXTREMITIES: No edema. There is resolving ecchymosis on the left thigh. There are no wounds present bilaterally or discoloration suggestive of gangrenous changes. Temperature is equal bilaterally and dorsalis pedis pulses are palpable. LABORATORY DATA: WBC 5, hemoglobin 11.5, hematocrit 35.3, platelets 144. Sodium 137, potassium 4.4, chloride 107, CO2 of 23, BUN 24, creatinine 1.07. IMPRESSION: 1. Peripheral arterial disease. 2. Left leg pain. 3. Immediate probability of pulmonary embolism by V/Q scan. 4. Diabetes. 5. Hypertension. 6. Hyperlipidemia. 7. Recent coronavirus disease-2019 pneumonia. RECOMMENDATIONS: Continue anticoagulation scheduled. Neurovascular checks as the patient does not appear to have acute limb ischemia. We will manage with anticoagulation. We will obtain bilateral lower extremity arterial Doppler to evaluate for areas of stenosis. Place the patient on telemetry to monitor for cardiac source of emboli that could explain findings on CT. Also obtain echocardiogram to evaluate for other cardiac sources of emboli. Continue supportive care. Blood pressure is acceptable for age. Continue current cardiac medications. Continue pain control. Thank you for this consult. We will continue to follow. Kenia Navarro MD ABS/MODL /[id number]
[2020-01-08] MEDS: ONDANSETRON HCL INJ 2MG/ML 2ML 2 MG/ML VIAL IV PRN (21:30)
[2020-01-09] VITALS (7 sets, daily range): BP systolic 111–168; BP diastolic 59–86
[2020-01-09] MEDS: ONDANSETRON HCL INJ 2MG/ML 2ML 2 MG/ML VIAL IV PRN ×2 (01:45→19:48)
[2020-01-09] MEDS: MORPHINE SULFATE INJ 4 MG/ML INJ 1ML IV PRN ×2 (01:45→19:48)
[2020-01-09] MEDS: KETOROLAC TROMETHAMINE 30 MG/ML VIAL IV PRN ×2 (04:15→23:03)
[2020-01-09] MEDS: SODIUM CHLORIDE 0.9% 1000ML 1,000 ML IV SCH ×3 (04:15→22:45)
[2020-01-09 06:16] LABS: BASOPHILS % 0.3 % (0.0-1.0); EOSINOPHILS # (AUTO) 0.1 (0.0-0.4); HEMATOCRIT 32.4 % (34.2-44.1); HEMOGLOBIN 10.8 g/dL (12.0-16.0); LYMPHOCYTES % 25.2 % (18.0-39.1); MEAN CORPUSCULAR HGB CONC 33.3 g/dL (31-35); MEAN CORPUSCULAR VOLUME 96.1 fL (81-99); MONOCYTES # (AUTO) 0.4 (0.2-0.8); MONOCYTES % 11.1 % (4.4-11.3); NEUTROPHILS # (AUTO) 2.4 (2.1-6.9); NEUTROPHILS % 59.9 % (38.7-80.0); PLATELET COUNT 139 x10e3/uL (140-360); RED BLOOD COUNT 3.37 x10e6/uL (3.6-5.1); RED CELL DISTRIBUTION WIDTH 13.6 % (11.7-14.4)
[2020-01-09 06:33] LABS: ANION GAP 13.1 mmol/L (8-16); BLOOD UREA NITROGEN 17 mg/dL (7-26); BUN/CREATININE RATIO 20 (6-25); CALCIUM 8.6 mg/dL (8.4-10.2); CARBON DIOXIDE 21 mmol/L (22-29); CHLORIDE 107 mmol/L (98-107); CHOL/HDL RATIO 5.2 (3.0-3.6); CHOLESTEROL 194 MD/DL (0-199); CREATININE, SERUM 0.85 mg/dL (0.57-1.11); EST GLOMERULAR FILTRATION RATE > 60 ML/MIN (60-); GLUCOSE 136 mg/dL (74-118); HDL CHOLESTEROL 37 MG/DL (40-60); LDL CHOLESTEROL 123 MG/DL (60-130); POTASSIUM 4.1 mmol/L (3.5-5.1); SODIUM 137 mmol/L (136-145); TRIGLYCERIDES 172 MG/DL (0-149)
--- NOTE | 2020-01-09 07:10 | NUR ---
RCD PT AT BED PT IS ALERT AND ORIENTED PT RESTING ON BED NO IV ACCESS BED LOW AND LOCKED CALL LIGHT IN REACH
[2020-01-09] MEDS: INSULIN LISPRO 100 UNIT/1 ML 3ML VIAL SQ SCH ×4 (07:30→20:42)
--- NOTE | 2020-01-09 08:35 | Progress Note ---
DATE: SUBJECTIVE: This patient came with left lower extremity intractable pain, was found to have an occlusive artery in the left lower extremity. The patient has history of coronavirus, currently also has a pulmonary embolism or filling defect in the lungs. The patient is currently on Lovenox. Medications otherwise include morphine and losartan, Ketorolac for pain control. The patient has been confused according to nursing staff. However, today, she is alert and oriented and talks in full sentences without any hesitation and alert and oriented x3. OBJECTIVE: VITAL SIGNS: Temperature is 98.3, pulse of 93, respirations of 18, blood pressure is 122/59, and pulse oximetry of 99% on room air. HEENT: Normocephalic, atraumatic. Pupils are reactive. CVS: S1, S2 normal. Regular rate and rhythm. ABDOMEN: Soft, nontender, nondistended. EXTREMITIES: No clubbing. No cyanosis. Positive for ecchymosis in the left lower extremity. LABORATORY VALUES: Hemoglobin of 10.8, hematocrit of 32.4. Chemistries all essentially normal except for glucose. LDL was 123. V/Q scan intermediate probability. ASSESSMENT: Ms. Shweta Dong with, 1. Possible pulmonary embolism. 2. Questionable embolic phenomena thrombus in the left lower extremity. Awaiting a Doppler study which already has been done. 3. History of diabetes mellitus. 4. Hypertension. 5. History of coronavirus. PLAN: Continue current anticoagulation. Continue with pain management. We will discuss with Cardiology and further intervention if needed. MD CARLOS Charlton/RAGHAVENDRAL /[id number]
[2020-01-09] MEDS: LOSARTAN POTASSIUM 25 MG TAB PO SCH (08:42)
[2020-01-09] MEDS: ENOXAPARIN SODIUM INJ 100 MG/ML SYR SC SCH (08:43)
--- NOTE | 2020-01-09 10:00 | NUR ---
NEW IV STARTED ON LT AC
--- NOTE | 2020-01-09 14:02 | Progress Note ---
DATE: Pulmonary Progress Note SUBJECTIVE: The patient does not have any shortness of breath, complaining of severe left leg pain. PHYSICAL EXAMINATION: VITAL SIGNS: Temperature 98.1, pulse of 80, blood pressure 144/73, respiratory rate of 18, and O2 saturation 100%. HEENT: Head is atraumatic, normocephalic. NECK: Supple. CHEST: Clear to auscultation bilaterally. No wheezing. HEART: S1, S2, audible. ABDOMEN: Soft. EXTREMITIES: Pedal edema. NEUROLOGIC: Awake, alert. LABORATORY DATA: White count of 3000, hemoglobin 10.8, and platelets 139. Chemistry reviewed. ASSESSMENT/PLAN: Ms. Dong is a 79-year-old female, V/Q scan showing intermediate probability and with the CT finding she has pulmonary embolism and will need anticoagulation, the reason is possibly post COVID hypercoagulable state. Current Problems: 1. Pulmonary embolism. Continue the patient on Lovenox and p.o. anticoagulation when she is discharged. 2. Left leg pain, I am not very clear what is the etiology of the severe left leg pain and this was discussed with Cardiology in detail and also discussed with Dr. Esparza. Dr. Gandara from Cardiology told me that the patient's blood flow in the arteries are not compromised and it is not likely ischemic pain. After discussion with Dr. Esparza, I consulted Orthopedic and ordered the MRI of the thigh. Also, detailed discussion was done with the patient's daughter over the phone and updated her with the plan of the treatment. MD KAROLINA Eason/LEILA /[id number]
--- NOTE | 2020-01-09 15:00 | NUR ---
PATIENT PULL OUT THE IV LINE
--- NOTE | 2020-01-09 17:32 | Progress Note ---
DATE: 01/09/2020 Cardiology Progress note SUBJECTIVE: The patient denies chest pain or shortness of breath. She continues to report pain in her left leg. She denies any recent falls or trauma. OBJECTIVE: VITAL SIGNS: Temperature 98.1 degrees, pulse 80, respiratory rate 18, blood pressure 145/73, and oxygen saturation 100% on room air. GENERAL: An elderly woman, in no acute distress. Awake and alert. LUNGS: Clear to auscultation bilaterally. No wheezes or crackles. CARDIOVASCULAR: Normal rate regular rhythm. No murmur. Normal S1, S2. ABDOMEN: Soft, nontender. EXTREMITIES: No edema. Resolving ecchymosis on the left thigh. CARDIAC MEDICATIONS: Enoxaparin 80 mg subcu daily. Losartan 50 mg p.o. daily. LABORATORY DATA: WBC 3.97, hemoglobin 10.8, hematocrit 32.4, and platelets 139. Sodium 137, potassium 4.1, chloride 107, CO2 of 21, BUN 17, and creatinine 0.85. Cholesterol 194, triglycerides 172, LDL 123, and HDL 37. TELEMETRY: Telemetry was personally reviewed and interpreted revealing normal sinus rhythm. IMPRESSION: 1. Left leg pain. 2. Intermediate probability of pulmonary embolism by V/Q scan. 3. Peripheral arterial disease by CT. 4. Diabetes mellitus. 5. Hypertension. 6. Hyperlipidemia. 7. Recent Coronavirus disease-19 pneumonia. RECOMMENDATIONS: Continue anticoagulation for pulmonary embolism. Bilateral lower extremity arterial Doppler was reviewed. She has triphasic and biphasic waveforms bilaterally which is not consistent with severe stenosis in addition to the patient's pain is above the reported area of stenosis by CT. Thus, the possible popliteal artery stenosis would not explain the patient's symptoms or bruising. Consider Orthopedic evaluation and further imaging of her left lower extremity for alternate etiologies of leg pain. If these are unremarkable, could consider proceeding with peripheral angiogram at that time for further evaluation, although CT abdomen and pelvis with runoff did not reveal any with proximal stenosis and did not reveal any vascular abnormalities proximal to the location of her pain. Monitor patient on telemetry. Continue current cardiac medications. Thank you for this consult. We will continue to follow. Kenia Navarro MD ABS/MODL /[id number]
--- NOTE | 2020-01-09 18:43 | NUR ---
PT RESTING ON BED BED SIDE REPORT GIVEN TO ONCOMING NURSE
[2020-01-10] VITALS (8 sets, daily range): BP systolic 128–167; BP diastolic 63–91
[2020-01-10] MEDS: SODIUM CHLORIDE 0.9% 1000ML 1,000 ML IV SCH ×3 (00:20→14:45)
--- NOTE | 2020-01-10 07:00 | NUR ---
BEDSIDE SHIFT REPORT RECEIVED FROM THE [employer] CHIEF RN. EDUCATED PT ABOUT FALL PRECAUTIONS. PT VERBALIZED UNDERSTANDING. CALL LIGHT WITH IN EASY REACH. INSTRUCTED PT TO USE CALL LIGHT FOR ALL THE NEEDS. BED IS LOW AND LOCKED. SIDE RAILS X2. BED ALARM IS ON. ALL SAFETY MEASURES IN PLACE. PT DENIES NEEDS AT THIS TIME.
--- NOTE | 2020-01-10 07:15 | Progress Note ---
DATE: SUBJECTIVE: The patient has been admitted for intractable left leg pain. The patient has done a Doppler and has been read by Dr. Navarro and also has history of anticoagulation. Bilateral lower extremities were reviewed and apparently no severe stenosis noted. The patient continues to still have pain. We will go ahead and consult Orthopedics for this pain. CT of the abdomen and pelvis did not reveal any information beside some vascular stenosis. Currently, the patient continues to be in pain at 10/10 and also is taking pain medication, slightly confused as per nursing staff. OBJECTIVE: VITAL SIGNS: Temperature is 97.6, pulse of 84, respirations of 18, blood pressure is 129/68. HEENT: Normocephalic, atraumatic. Pupils reactive. CVS: S1 and S2 normal. Regular rate and rhythm. ABDOMEN: Soft, nontender, nondistended. EXTREMITIES: No clubbing, no cyanosis, no edema. V/Q scan done showed intermediate probability. ASSESSMENT AND PLAN: Ms. Shweta Dong with: 1. Left lower extremity pain. Ortho consult has been ordered. 2. Pulmonary embolism. We will continue with anticoagulation. 3. Consult with Dr. Hall. 4. MRI of the lower extremity will be done and reviewed. Further recommendation per clinical course and also depending on Ortho and MRI of the left lower extremities. MD CARLOS Charlton/MODL /[id number]
[2020-01-10] MEDS: INSULIN LISPRO 100 UNIT/1 ML 3ML VIAL SQ SCH ×4 (07:30→21:00)
[2020-01-10] MEDS: LOSARTAN POTASSIUM 25 MG TAB PO SCH (09:32)
[2020-01-10] MEDS: ENOXAPARIN SODIUM INJ 100 MG/ML SYR SC SCH (09:32)
--- NOTE | 2020-01-10 11:17 | Progress Note ---
DATE: 01/10/2020 Cardiology Progress Note SUBJECTIVE: The patient denies chest pain or shortness of breath. She continues to have pain in her left leg. OBJECTIVE: VITAL SIGNS: Temperature 99.1 degrees, pulse 80, respiratory rate 20, blood pressure 128/62, and oxygen saturation 99% on room air. GENERAL: Elderly woman, in no acute distress. Awake and alert. LUNGS: Clear to auscultation bilaterally. No wheezes or crackles. CARDIOVASCULAR: Normal rate. Regular rhythm. No murmur. Normal S1 and S2. ABDOMEN: Soft and nontender. EXTREMITIES: No edema. CARDIAC MEDICATIONS: Losartan 50 mg p.o. daily and enoxaparin 100 mg subcutaneous daily. LABORATORY DATA: None today. Telemetry was personally reviewed and interpreted, revealing normal sinus rhythm. IMPRESSION: 1. Left leg pain. 2. Intermediate probability of pulmonary embolism by V/Q scan. 3. Peripheral arterial disease by CT. 4. Diabetes mellitus. 5. Hypertension. 6. Hyperlipidemia. 7. Recent COVID-19 pneumonia next. RECOMMENDATIONS: Continue anticoagulation for pulmonary embolism. Bilateral lower extremity arterial Doppler demonstrated triphasic and biphasic waveforms bilaterally, which is not consistent with severe stenosis. Additionally, the patient's pain is above the reported area of stenosis by CT, which would not explain her symptoms. Orthopedic evaluation is pending. Agree with further imaging with MRI of the left lower extremity. If these tests are unremarkable, could consider proceeding with peripheral angiogram at that time, although no proximal stenoses were identified on CT abdomen and pelvis. Monitor the patient closely on telemetry. Continue current cardiac medications. Blood pressure is adequately controlled for her age. Thank you for this consult. We will continue to follow. Kenia Navarro MD ABS/MODL /[id number]
[2020-01-10] MEDS: MORPHINE SULFATE INJ 4 MG/ML INJ 1ML IV PRN (12:08)
[2020-01-10] MEDS: ONDANSETRON HCL INJ 2MG/ML 2ML 2 MG/ML VIAL IV PRN (12:08)
--- NOTE | 2020-01-10 13:16 | NUR ---
Discontinuing PT services since patient is Mod i in functional mobility. Thank you Addendum: 01/10/20 at 1316 by Antonio kohler PT Amended: Links added.
--- NOTE | 2020-01-10 13:20 | NUR ---
PT OFF UNIT FOR MRI IN SAFE CONDITION.
--- NOTE | 2020-01-10 15:06 | Diagnostic Imaging Report ---
TECHNIQUE: Magnetic resonance imaging of the left femur was performed WITHOUT injected contrast. HISTORY: Pain and bruising COMPARISON: None available. FINDINGS: Bone marrow signal is normal. No edema, fracture, infiltrating lesion, or osteonecrosis. Soft tissues are unremarkable. No focal mass or fluid collection. No muscle edema or atrophy. Degenerative arthrosis of the left hip and knee, partially visualized. IMPRESSION: No acute osseous or soft tissue abnormality. Signed by: Dr. Jason Marie M.D. on 01/10/2020 3:03 PM
--- NOTE | 2020-01-10 19:25 | NUR ---
BEDSIDE SHIFT REPORT GIVEN TO THE FLIGHT SECURITY SPECIALIST RN. DAUGHTER AT BEDSIDE. PT DENIED FURTHER NEEDS.
--- NOTE | 2020-01-10 20:08 | Progress Note ---
DATE: SUBJECTIVE: The patient reports that the leg pain is little better. Orthopedic note reviewed. No fracture on the MRI and no other abnormalities. PHYSICAL EXAMINATION: VITAL SIGNS: Temperature 97.9, pulse of 74, and blood pressure 139/79. CHEST: Clear. NEUROLOGIC: Awake and alert. LABORATORY DATA: Reviewed. ASSESSMENT/PLAN: Ms. Dong is a 79-year-old female, recently had COVID-19 infection, came in because of pulmonary embolism, which was an incidental, came in because of left leg pain, which is somewhat better. CT showed incidental finding of pulmonary embolism. PLAN: Continue the patient on Lovenox on discharge. The patient can be discharged on Eliquis or Coumadin depending upon the patient's preference. I had a detailed discussion with the patient's daughter at bedside. Oxygen as needed to keep the O2 saturation more than or equal to92%. MD KAROLINA Eason/LEILA /[id number]
--- NOTE | 2020-01-10 23:15 | Consultation ---
DATE OF CONSULTATION: 01/10/2020 CHIEF COMPLAINT: Left hip pain. HISTORY OF PRESENT ILLNESS: The patient is a 79-year-old lady who states that she developed pain with weightbearing in her left hip about four days ago. She borrowed a walker from one of her neighbors. She states that the pain persisted and was worse with trying to bear weight. She went to the emergency room where they thought it was potentially sciatica. She states that she was given some steroids and a blood thinner. She had an MRI of her back that was reportedly negative. She did not improve and was admitted to the hospital for further evaluation. She continues to complain of pain with weightbearing in her left hip region. She had an MRI earlier today to further investigate this. She denies any previous hip pain prior to a few days ago. PAST MEDICAL HISTORY: Please see admission H and P. She has a history of diabetes, hypertension, hyperlipidemia, and recent coronavirus. SOCIAL HISTORY: She is recently . She does not drink or smoke. PHYSICAL EXAMINATION: She is awake and alert and in no distress. She declined to attempt to stand or walk in the hospital room. Limb lengths were grossly equal. She has diminished muscle definition in both lower extremities. There is some very mild bruising on the inside of her left thigh. She has diminished and uncomfortable passive range of motion of her left hip. LABORATORY STUDIES: X-rays show advanced osteoarthritis of her left hip. IMPRESSION: Osteoarthritis, left hip. The findings and options were discussed. There is nothing acute. The treatment options regarding osteoarthritis of the hip were discussed. I have discussed the pros and cons of anti-inflammatories. I would suggest some outpatient physical therapy. A brief course of light pain medications may be necessary. She states that she has already had a course of steroids. I provided my clinic information to see her electively as an outpatient. The possibility of a future hip replacement was explained, but I would certainly recommend a trial of conservative management to begin with. All of this can be done as an outpatient. I would be happy to see her in the office in the next few days to establish some outpatient physical therapy. Thank you for the consultation. Varghese Krasue MD DR/LEILA /[id number]
[2020-01-11] VITALS (7 sets, daily range): BP systolic 132–178; BP diastolic 78–91
[2020-01-11] MEDS: ONDANSETRON HCL INJ 2MG/ML 2ML 2 MG/ML VIAL IV PRN
--- NOTE | 2020-01-11 07:00 | NUR ---
BEDSIDE SHIFT REPORT RECEIVED FROM THE INWARD TOLL OPERATOR RN. EDUCATED PT ABOUT FALL PRECAUTIONS. PT VERBALIZED UNDERSTANDING. CALL LIGHT WITH IN EASY REACH. INSTRUCTED PT TO USE CALL LIGHT FOR ALL THE NEEDS. BED IS LOW AND LOCKED. SIDE RAILS X2. BED ALARM IS ON. ALL SAFETY MEASURES IN PLACE. PT DENIES NEEDS AT THIS TIME.
[2020-01-11] MEDS: INSULIN LISPRO 100 UNIT/1 ML 3ML VIAL SQ SCH ×2 (07:30→11:45)
--- NOTE | 2020-01-11 07:31 | Progress Note ---
DATE: SUBJECTIVE: A 79-year-old female who came in with intractable left leg pain. Initially thought to be an ischemic limp, ruled out with Doppler. The patient had Orthopedic consultation with Dr. Krause, determined to be osteoarthritis of the left hip. The patient is to see him as an outpatient for possible therapy and also surgery. The patient also was found to have a pulmonary embolism with intermediate V/Q scan and a positive filling defect. The patient will need an outpatient CT, can be done as an outpatient, but will discharge the patient on Eliquis today. OBJECTIVE: VITAL SIGNS: Temperature is 98.0, pulse of 89, respirations of 20, blood pressure is 132/84 with on room air 97%. HEENT: Normocephalic, atraumatic. Pupils are reactive to light and accommodation. CVS: S1, S2 normal. Regular rate and rhythm. LUNGS: Good air entry in the lung bases. EXTREMITIES: No clubbing, no cyanosis, no edema. ASSESSMENT: Ms. Shweta Dong with left hip osteoarthritis, intractable left hip pain, filling defect with pulmonary embolism. PLAN: Okay to discharge home on current home medication and also on Eliquis 5 mg twice a day. The patient will be followed by Dr. Krause for possible intervention on the left hip. MD CARLOS Charlton/MODL /[id number]
[2020-01-11] MEDS ORDERED: ELIQUIS5 MG (08:00)
[2020-01-11] MEDS ORDERED: ELIQUIS5 MG PO (08:04)
[2020-01-11] MEDS: MORPHINE SULFATE INJ 4 MG/ML INJ 1ML IV PRN ×2 (08:45)
[2020-01-11] MEDS: SODIUM CHLORIDE 0.9% 1000ML 1,000 ML IV SCH ×2 (08:45)
[2020-01-11] MEDS: LOSARTAN POTASSIUM 25 MG TAB PO SCH (08:49)
--- NOTE | 2020-01-11 08:50 | NUR ---
EDUCATED ABOUT IMM, SIGNED, FILED IN CHART, WITH COPY LEFT WITH FAMILY AT BEDSIDE.
[2020-01-11] MEDS ORDERED: APIXABAN 5 MG TABLET PO SCH (09:00)
[2020-01-11] MEDS: KETOROLAC TROMETHAMINE 30 MG/ML VIAL IV PRN (11:10)
--- NOTE | 2020-01-11 11:29 | NUR ---
Received order for home health. CM spoke to pt at bedside. Pt states to use any company in network with her insurance. Choice letter signed for [facility] and [facility]. Informed pt that referral will be sent to [facility]. CM gave her [facility]'s contact information and asked that she call them if she does not hear from them within 24 hrs of discharge. Also gave her CM's contact information for any questions/concerns. Referral sent to [facility] and rep Tracey with [facility] was informed of referral.
--- NOTE | 2020-01-11 11:57 | NUR ---
PT C/O LEFT LEG PAIN 12/03. BP 178/[address] LOUIE AND REPORTED THE SAME. NEW ORDER RECEIVED.
[2020-01-11] MEDS ORDERED: HYDROMORPHONE 1MG/1ML INJ IV PRN (12:00)
[2020-01-11] MEDS ORDERED: ONDANSETRON HCL 4 MG ORAL DISINTEGRATING TAB PO PRN (12:30)
--- NOTE | 2020-01-11 12:51 | NUR ---
Spoke with Maryam with [facility], they are accepting pt. They will reach out to pt and schedule admit.
--- NOTE | 2020-01-11 12:55 | NUR ---
RANI TO D/C PT PER DR. LOUIE. D/C INSTRUCTIONS GIVEN TO THE PT AND DAUGHTER TAB GARCIA OVER THE PHONE. PT AND DAUGHTER VERBALIZED UNDERSTANDING.
--- NOTE | 2020-01-11 14:04 | Progress Note ---
DATE: 01/11/2020 Cardiology Progress Note SUBJECTIVE: The patient denies chest pain or shortness of breath. Her left leg continues to be painful with pain located at the hip, radiating down her leg. OBJECTIVE: VITAL SIGNS: Temperature 98 degrees, pulse 86, respiratory rate 18, blood pressure 140/78, and oxygen saturation 100% on room air. GENERAL: An elderly woman, in no acute distress, awake and alert. LUNGS: Clear to auscultation bilaterally. No wheezes or crackles. CARDIOVASCULAR: Normal rate. Regular rhythm. No murmur. Normal S1, S2. ABDOMEN: Soft, nontender. EXTREMITIES: No edema. CARDIAC MEDICATIONS: Apixaban 5 mg p.o. b.i.d. and losartan 50 mg p.o. daily. LABORATORY DATA: None today. TELEMETRY: Telemetry was personally reviewed and interpreted revealing normal sinus rhythm. IMPRESSION: 1. Left leg pain. 2. Intermediate probability of pulmonary embolism by V/Q scan. 3. Peripheral artery disease by CT. 4. Diabetes mellitus. 5. Hypertension. 6. Hyperlipidemia. 7. Recent coronavirus disease-19 pneumonia. RECOMMENDATIONS: Continue anticoagulant for pulmonary embolism. Bilateral lower extremity arterial Doppler demonstrate triphasic and biphasic waveforms bilaterally which is not consistent with severe stenosis. Additionally, the patient's pain is above the reported area of stenosis by CT which does not explain her symptoms. Orthopedic evaluation is noted. The patient has osteoarthritis of the hip, management per Ortho. If she continues to have discomfort, discussed warning signs with the patient. She was instructed to follow up in the office in 2 weeks. No peripheral angiogram is indicated at this time as the patient does not have any ulcers, wounds, gangrenous changes, or evidence of acute limb ischemia. Thank you for this consult. We will continue to follow. Kenia Navarro MD ABS/MODL /[id number]
== END 2020-01-11 14:00 | disposition home or self-care (01) | DRG 553 ==
LOC: ER 10:00 → ERHOLD 14:34 → MED/SURG2 16:00 → OBSVTOIN 01-08 07:41
PROVIDERS: ADMIT Family Medicine; ATTEND Family Medicine
DX: M16.12 Unilateral primary osteoarthritis, left hip (principal); I26.99 Other pulmonary embolism without acute cor pulmonale; Z88.2 Allergy status to sulfonamides; E78.00 Pure hypercholesterolemia, unspecified; K21.9 Gastro-esophageal reflux disease without esophagitis; E11.42 Type 2 diabetes mellitus with diabetic polyneuropathy; I10 Essential (primary) hypertension; E78.5 Hyperlipidemia, unspecified; Z86.19 Personal history of other infectious and parasitic diseases; Z20.828 Contact with and (suspected) exposure to other viral communicable diseases; Z79.84 Long term (current) use of oral hypoglycemic drugs
CPT/HCPCS: 36415; 75635; 78582; 80048; 80053; 80061; 82550; 82948; 85025; 93306; 93925; 99284; A9540; G0378; J1170; J1650; J1885; J2270; J2405; J3010; J7030; J7040; J7050; Q9967; U0002

== ENCOUNTER 2020-05-24 16:23 | Observation (INO) | payer MEDICARE, OTHER ==
[~2020-05-24] VITALS: Ht 162.6 cm; Wt 72.1 kg
[~2020-05-24 16:23] MED LIST changes: +ELIQUIS5 MG; +ELIQUIS5 MG PO; +NORCO 5-325 TA1 EACH PO; +OXYBUTYNIN CHLOR5 M1 PEG; +PIOGLITAZONE HC45 MG PO
[2020-05-24 18:13] LABS: HEMATOCRIT 34.2 % (34.2-44.1); HEMOGLOBIN 11.4 g/dL (12.0-16.0); MEAN CORPUSCULAR HEMOGLOBIN 32.9 pg (28-32); MEAN CORPUSCULAR HGB CONC 33.3 g/dL (31-35); MEAN CORPUSCULAR VOLUME 98.6 fL (81-99); PLATELET COUNT 129 x10e3/uL (140-360); RED BLOOD COUNT 3.47 x10e6/uL (3.6-5.1); RED CELL DISTRIBUTION WIDTH 12.8 % (11.7-14.4)
[2020-05-24 18:23] LABS: INR 0.93
[2020-05-24 18:30] LABS: ALBUMIN 3.8 g/dL (3.5-5.0); ALBUMIN/GLOBULIN RATIO 1.3 (0.8-2.0); ANION GAP 15.3 mmol/L (8-16); CALCIUM 9.4 mg/dL (8.4-10.2); CREATININE, SERUM 0.91 mg/dL (0.57-1.11); POTASSIUM 3.3 mmol/L (3.5-5.1)
[2020-05-24 18:36] LABS: CREATINE KINASE MB 0.6 ng/mL (0-5.0)
[2020-05-24 18:52] LABS: EOSINOPHILS % (MANUAL) 1 % (0-7); LYMPHOCYTES % (MANUAL) 36 % (19-48); MONOCYTES % (MANUAL) 9 % (3.4-9.0); NEUTROPHILS % (MANUAL) 46 % (40-74); PLATELET ESTIMATE ADEQUATE; PLATELET MORPHOLOGY COMMENT NORMAL; RBC MORPHOLOGY COMMENT NORMAL
[2020-05-24] MEDS: RIVAROXABAN 20 MG TABLET PO SCH (19:28)
[2020-05-24 20:10] VITALS: BP 139/73
[2020-05-24] MEDS: HYDROCODONE/APAP 5MG-325MG TAB PO PRN (21:50)
[2020-05-24 22:25] VITALS: BP 139/73
[2020-05-24 23:50] VITALS: BP_SYST 115; BP_SYST 155; BP_DIAS 59; BP_DIAS 88
[2020-05-25] MEDS: HYDROCODONE/APAP 5MG-325MG TAB PO PRN ×2 (03:08→09:12)
[2020-05-25 03:56] LABS: CREATINE KINASE MB 0.6 ng/mL (0-5.0)
[2020-05-25 05:14] VITALS: BP 132/69
[2020-05-25 05:53] LABS: BASOPHILS % 0.5 % (0.0-1.0); EOSINOPHILS # (AUTO) 0.1 (0.0-0.4); EOSINOPHILS % 2.9 % (0.0-6.0); HEMATOCRIT 32.6 % (34.2-44.1); HEMOGLOBIN 11.1 g/dL (12.0-16.0); LYMPHOCYTES # (AUTO) 1.2 (1.0-3.2); LYMPHOCYTES % 29.9 % (18.0-39.1); MEAN CORPUSCULAR HEMOGLOBIN 33.1 pg (28-32); MEAN CORPUSCULAR VOLUME 97.3 fL (81-99); MONOCYTES # (AUTO) 0.5 (0.2-0.8); MONOCYTES % 11.7 % (4.4-11.3); NEUTROPHILS # (AUTO) 2.3 (2.1-6.9); NEUTROPHILS % 54.8 % (38.7-80.0); PLATELET COUNT 120 x10e3/uL (140-360); RED BLOOD COUNT 3.35 x10e6/uL (3.6-5.1); RED CELL DISTRIBUTION WIDTH 12.4 % (11.7-14.4)
[2020-05-25] MEDS ORDERED: ACETAMINOPHEN 325 MG TAB PO PRN (06:15)
[2020-05-25] MEDS ORDERED: ZOLPIDEM TARTRATE 5 MG TAB PO PRN (06:15)
[2020-05-25] MEDS ORDERED: ONDANSETRON HCL INJ 2MG/ML 2ML 2 MG/ML VIAL IV PRN (06:15)
[2020-05-25] MEDS ORDERED: DOCUSATE SODIUM 100 MG CAP PO PRN (06:15)
[2020-05-25 06:20] LABS: ALANINE AMINOTRANSFERASE 13 IU/L (0-55); ALBUMIN 3.3 g/dL (3.5-5.0); ALBUMIN/GLOBULIN RATIO 1.3 (0.8-2.0); ALKALINE PHOSPHATASE 44 IU/L (40-150); ANION GAP 12.3 mmol/L (8-16); BLOOD UREA NITROGEN 14 mg/dL (7-26); BUN/CREATININE RATIO 18 (6-25); CARBON DIOXIDE 30 mmol/L (22-29); CHLORIDE 100 mmol/L (98-107); EST GLOMERULAR FILTRATION RATE > 60 ML/MIN (60-); GLUCOSE 183 mg/dL (74-118); POTASSIUM 3.3 mmol/L (3.5-5.1); SODIUM 139 mmol/L (136-145)
[2020-05-25] MEDS ORDERED: DEXTROSE 50% SYRINGE 50 ML IV PRN (06:30)
[2020-05-25 07:01] LABS: CHOL/HDL RATIO 3.6 (3.0-3.6)
[2020-05-25] MEDS: INSULIN REGULAR, HUMAN 100 UNIT/1 ML 3ML VIAL SQ SCH ×4 (07:30→20:03)
[2020-05-25 08:56] VITALS: BP 132/69
[2020-05-25 08:57] VITALS: BP 128/66
[2020-05-25] MEDS: FAMOTIDINE 20 MG TAB PO SCH ×2 (09:15→16:20)
[2020-05-25 12:04] VITALS: BP 116/62
[2020-05-25 13:57] LABS: CREATINE KINASE 33 IU/L (29-168)
[2020-05-25 16:07] VITALS: BP 136/69
[2020-05-25] MEDS: RIVAROXABAN 20 MG TABLET PO SCH (16:20)
[2020-05-25] MEDS ORDERED: ONDANSETRON HCL 4 MG ORAL DISINTEGRATING TAB PO PRN (19:00)
[2020-05-25 20:00] VITALS: BP 128/71
== END 2020-05-25 20:30 ==
LOC: ER 16:46 → ERHOLD 18:12 → MED/SURG3 19:58
PROVIDERS: ADMIT Internal Medicine; ATTEND Internal Medicine
DX: I82.412 Acute embolism and thrombosis of left femoral vein (principal); I82.432 Acute embolism and thrombosis of left popliteal vein; I82.442 Acute embolism and thrombosis of left tibial vein; Z20.822 Contact with and (suspected) exposure to COVID-19; G62.9 Polyneuropathy, unspecified; E11.9 Type 2 diabetes mellitus without complications; Z86.16 Personal history of COVID-19; I10 Essential (primary) hypertension; E78.5 Hyperlipidemia, unspecified; E87.6 Hypokalemia; D61.818 Other pancytopenia
CPT/HCPCS: 36415 ×2; 80053 ×2; 80061; 82550 ×2; 82553 ×2; 82948 ×2; 83036; 84484 ×2; 85007; 85025; 85027; 85610; 93970; 99284; G0378 ×2; U0002